=== PATIENT | female | born 1985 | race American Indian/Alaskan Native ===

== ENCOUNTER 2019-05-05 15:15 | Emergency (ER) | payer MEDICAID ==
--- NOTE | 2019-05-05 16:32 | Emergency Department Report ---
ED Rash HPI - HPI Chief Complaint: Skin Rash Stated Complaint: BREAKING OUT Time Seen by Provider: 05/05/19 16:25 Duration: 3 months Location: Chest, Upper Extremities, Lower Extremities Suspected Cause: Insect Rash Symptoms: Yes Itching, No Facial Swelling, No Tongue/Oral Swelling, No Breathing Difficulties, No Choking Sensation, No Wheezing/Dyspnea, No Peeling, No Blistering, No Fever, No Lightheaded, No Malaise, No Myalgias Severity: mild Other History: This is a 34-year-old after [place] female who presents to the emergency room with pruritic rash. Mom states she was diagnosed with scabies 3 months ago which continues to reappear. Patient states she exposed to scabies 3-4 months ago by a new partner and can't get rid of them. Reports increase itching and rash to her anterior torso and bilateral upper extremities. She has tried everything [id number] with no improvement of symptoms. ED Review of Systems ROS: Stated complaint: BREAKING OUT Other details as noted in HPI Constitutional: denies: chills, fever Respiratory: denies: cough, shortness of breath, wheezing Cardiovascular: denies: chest pain, palpitations Gastrointestinal: denies: abdominal pain, nausea, diarrhea Skin: rash, pruritus. denies: lesions Neurological: denies: headache, weakness, paresthesias Psychiatric: denies: anxiety, depression ED Past Medical Hx - Past Medical History Previous Medical History?: No - Surgical History Past Surgical History?: No - Medications Home Medications: Home Medications Medication Instructions Recorded Confirmed Last Taken Type Permethrin [Nix Complete] 324.86 ml MC ONCE #1 combo..pkg 05/05/19 Unknown Rx hydrOXYzine PAMOATE [Vistaril] 25 mg PO Q6HR PRN #20 capsule 05/05/19 Unknown Rx methylPREDNISolone [Medrol 4MG 4 mg PO DAILY #1 tab.ds.pk 05/05/19 Unknown Rx DOSEPAK (21 tabs)] Rash Exam - Exam General: Vital signs noted. No distress. Alert and acting appropriately. HEENT: No Periorbital Edema, No Conjuctival Injection, No Chemosis, No Perioral Edema, No Tongue Edema, No Uvular Edema, No Compromised Airway, No Drooling Lungs: Yes Good Air Exchange (Normal Breath Sounds), No Wheezes, No Ronchi, No Stridor, No Cough, No Labored Respirations, No Retractions, No Use of Accessory Muscles, No Other Abnormal Lung Sounds Heart: Yes Regular, No Murmur Skin: Yes Other (liner burrows to anterior chest and flexer fingers) ED Medical Decision Making - Medical Decision Making Patient was examined by me. Vitals are normal and patient is in no acute distress. There are linear burrows to anterior torso and web spacing to bilateral fingers which appear to be scabies rash. Start Medrol Dosepak, Vistaril, and permethrin. Instructed to wash all linen and clothing in hot water and bag bulky items. Plan discussed with patient to discharge home and treat outpatient. She agrees with ER plan. Patient discharged home in stable condition. Follow up with PCP in 2-3 days. Critical care attestation.: If time is entered above; I have spent that time in minutes in the direct care of this critically ill patient, excluding procedure time. ED Disposition Clinical Impression: Scabies, Pruritic rash Disposition: TO HOME OR SELFCARE Is pt being admited?: No Does the pt Need Aspirin: No Condition: Stable Instructions: Scabies (ED) Additional Instructions: Wash all linen and clothing in hot water and bag bulky items. Follow up with PCP in 2-3 days. Prescriptions: methylPREDNISolone [Medrol 4MG DOSEPAK (21 tabs)] 4 mg PO DAILY #1 tab.ds.pk Permethrin [Nix Complete] 324.86 ml MC ONCE #1 combo..pkg hydrOXYzine PAMOATE [Vistaril] 25 mg PO Q6HR PRN #20 capsule PRN Reason: Itching Referrals: [facility] [Outside] - 3-5 Days [facility] [Outside] - 3-5 Days [facility] [Outside] - 3-5 Days Forms: Work/School Release Form(ED) Time of Disposition: 16:38
== END 2019-05-05 16:25 | disposition home or self-care (01) ==
LOC: ED 15:15
DX: B86 Scabies (principal)
CPT/HCPCS: 99281

== ENCOUNTER 2019-10-11 09:43 | Emergency (ER) | payer MEDICAID ==
--- NOTE | 2019-10-11 09:56 | Event Note ---
ED Screening Note Date of service: 10/11/19 Time: 09:51 ED Screening Note: 34 y/o female comes in for dysuria times 2 days. Patient report that she works for [employer] and has been holding her urine. Has some my lower abdominal pain. This initial assessment/diagnostic orders/clinical plan/treatment(s) is/are subject to change based on patients health status, clinical progression and re- assessment by fellow clinical providers in the ED. Further treatment and workup at subsequent clinical providers discretion. Patient/guardian urged not to elope from the ED as their condition may be serious if not clinically assessed and managed. Initial orders include:
[2019-10-11 10:47] LABS: Bacteria,Urine 1+ /HPF (Negative); Bilirubin,Urine NEG (Negative); Blood,Urine SM (Negative); Color,Urine Yellow (Yellow); Mucus,Urine FEW /HPF; Protein,Urine <15 mg/dL mg/dL (Negative); Urobilinogen,Urine < 2.0 mg/dL (<2.0)
--- NOTE | 2019-10-11 12:31 | Emergency Department Report ---
ED Female HPI - General Chief complaint: Urogenital-Female Stated complaint: ABDOMINAL PAIN Time Seen by Provider: 10/11/19 09:50 Source: patient Mode of arrival: Ambulatory Limitations: No Limitations - History of Present Illness Initial comments: 34-year-old [place] female reports multiple department complaining of dysuria for the last 2-3 days J with mild suprapubic discomfort. No vaginal discharge or vaginal bleeding. No fever, chills, sweats. No chest pain or palpitations. No nausea or vomiting. She reports increased urinary urgency and frequency with decreased production and is not taking any medications to help resolve her symptoms since the onset. She also reports of no possibility of MD Complaint: dysuria - Related Data Previous Rx's Medication Instructions Recorded Last Taken Type Permethrin [Nix Complete] 324.86 ml MC ONCE #1 combo..pkg 05/05/19 Unknown Rx hydrOXYzine PAMOATE [Vistaril] 25 mg PO Q6HR PRN #20 capsule 05/05/19 Unknown Rx methylPREDNISolone [Medrol 4MG 4 mg PO DAILY #1 tab.ds.pk 05/05/19 Unknown Rx DOSEPAK (21 tabs)] Phenazopyridine [Pyridium] 200 mg PO TID #10 tab 10/11/19 Unknown Rx Allergies Allergy/AdvReac Type Severity Reaction Status Date / Time No Known Allergies Allergy Unverified 05/05/19 15:24 ED Review of Systems ROS: Stated complaint: ABDOMINAL PAIN Other details as noted in HPI Comment: All other systems reviewed and negative ED Past Medical Hx - Surgical History Additional Surgical History: - Social History Smoking Status: Never Smoker Substance Use Type: None - Medications Home Medications: Home Medications Medication Instructions Recorded Confirmed Last Taken Type Permethrin [Nix Complete] 324.86 ml MC ONCE #1 combo..pkg 05/05/19 Unknown Rx hydrOXYzine PAMOATE [Vistaril] 25 mg PO Q6HR PRN #20 capsule 05/05/19 Unknown Rx methylPREDNISolone [Medrol 4MG 4 mg PO DAILY #1 tab.ds.pk 05/05/19 Unknown Rx DOSEPAK (21 tabs)] Phenazopyridine [Pyridium] 200 mg PO TID #10 tab 10/11/19 Unknown Rx ED Physical Exam - General Limitations: No Limitations General appearance: alert, in no apparent distress - Head Head exam: Present: atraumatic, normocephalic - Eye Eye exam: Present: normal appearance, PERRL, EOMI Pupils: Present: normal accommodation - ENT ENT exam: Present: normal exam, normal orophraynx, mucous membranes moist - Neck Neck exam: Present: normal inspection, tenderness, full ROM. Absent: lymphadenopathy, thyromegaly - Respiratory Respiratory exam: Present: normal lung sounds bilaterally. Absent: respiratory distress - Cardiovascular Cardiovascular Exam: Present: regular rate, normal rhythm. Absent: systolic murmur, diastolic murmur, rubs, gallop - GI/Abdominal GI/Abdominal exam: Present: soft, normal bowel sounds - Extremities Exam Extremities exam: Present: normal inspection - Back Exam Back exam: Present: normal inspection - Neurological Exam Neurological exam: Present: alert, oriented X3 - Psychiatric Psychiatric exam: Present: normal affect, normal mood - Skin Skin exam: Present: warm, dry, intact, normal color. Absent: rash ED Medical Decision Making - Medical Decision Making This 34 y/o female patient presents with symptoms consistent with acute uncomplicated cystitis. No systemic symptoms. Not septic. Well appearing. Low suspicion for acute pyelonephritis given lack of fever, CVAT, or systemic features. Low suspicion for kidney stone or infected stone. Finger stick negative; not consistent with , including ectopic. No indication for labs or imaging at this time. Plan: UA and pyridum. UA not consistent with infection at this time. advised to be rechecked in 2 days Critical care attestation.: If time is entered above; I have spent that time in minutes in the direct care of this critically ill patient, excluding procedure time. ED Disposition Clinical Impression: Dysuria Disposition: DC-01 TO HOME OR SELFCARE Is pt being admited?: No Does the pt Need Aspirin: No Condition: Stable Instructions: Dysuria (ED) Prescriptions: Phenazopyridine [Pyridium] 200 mg PO TID #10 tab Referrals: MONROE NARAYANAN MD [Staff Physician] - 3-5 Days
== END 2019-10-11 12:47 | disposition home or self-care (01) ==
LOC: ED 09:43
DX: R30.0 Dysuria (principal); R39.15 Urgency of urination; R10.9 Unspecified abdominal pain
CPT/HCPCS: 81001; 82962